=== PATIENT | female | born 1990 | race Caucasian/White ===

== ENCOUNTER 2017-04-12 17:22 | Emergency (ER) | payer OTHER, MEDICAID ==
[~2017-04-12] VITALS: Ht 167.6 cm; Wt 59.1 kg
[~2017-04-12 17:22] MED LIST: ACET325 PO; Breast pump; COMPCHW PO; IBUP600 PO
[2017-04-12] MEDS ORDERED: SODIUM CHLOR 0.9% 1000 ML INJ 1,000 ML IV ONE (17:38)
[2017-04-12] MEDS ORDERED: SODIUM CHLORIDE 0.9% FLUSH 10 ML FLUSH IVF PRN (17:45)
[2017-04-12 18:05] LABS: AUTOMATED NEUTROPHIL # 7.2 TH/MM3 (1.8-7.7); BASOPHIL # 0.1 TH/MM3 (0-0.2); BASOPHIL % 0.9 % (0.0-2.0); EOSINOPHIL # 0.2 TH/MM3 (0-0.4); EOSINOPHIL % 1.4 % (0.0-4.0); HEMATOCRIT 36.8 % (35.0-46.0); HEMO FLAGS DIFF FINAL; LYMPH % 23.4 % (9.0-44.0); LYMPHOCYTE # 2.6 TH/MM3 (1.0-4.8); MEAN CELL VOLUME 85.3 FL (80.0-100.0); MEAN CORPUSCULAR HEMOGLOBIN 30.4 PG (27.0-34.0); MEAN CORPUSCULAR HGB CONC 35.6 % (32.0-36.0); MONO % 8.2 % (0.0-8.0); NEUT % 66.1 % (16.0-70.0); PLATELET COUNT 271 TH/MM3 (150-450); RED BLOOD COUNT 4.31 MIL/MM3 (4.00-5.30); RED CELL DISTRIBUTION WIDTH 12.8 % (11.6-17.2)
--- NOTE | 2017-04-12 18:06 | PD ---
HPI Chief Complaint: overdose Time Seen by Provider: 17:52 Travel History International Travel<30 days: No Contact w/Intl Traveler<30days: No History of Present Illness HPI 27-year-old female presents by Dhara conley after ingesting unknown substance and unknown amount in an attempt to kill herself. Patient is not wanting to talk here and would not talk at all until sternal rub and then she told me to go the Fck away. History is significantly limited. She presents by ambulance. Unknown time of ingestion. Staff states ambulance team could not find signs of ingestion but limited evaluation PFSH Past Medical History Medical History: Unable to Obtain Past Surgical History Surgical History: Unable to Obtain Social History Narrative Social History By records Alcohol Use: No Tobacco Use: No Allergies-Medications (Allergen,Severity, Reaction): Coded Allergies: penicillin G (Unverified Allergy, Severe, Anaphylaxis, 02/02/17) Reported Meds & Prescriptions Reported Meds & Active Scripts Active [Breast pump] Units Motrin 600 Mg Tab (Ibuprofen) 600 Mg Tab 600 Mg PO Q6H PRN Completenate ( Vit W/ Ferrous Fumara) Chw 1 Tab PO DAILY Vitafol Ultra 29-0.6-0.4-200 mg ( Vit W/ Fe Polysacch C) 1 Cap Cap Reported Tylenol (Acetaminophen) 325 Mg Tab 650 Mg PO Q4H Review of Systems ROS Limitations: Poor Historian Physical Exam Exam Limitations: Poor Historian Narrative GENERAL: Well-nourished, well-developed patient. SKIN: Warm and dry. Tract [place] noted HEAD: Normocephalic and atraumatic. EYES: No injection or drainage. Pupils 2 mm bilaterally ENT: No nasal drainage noted. NECK: Supple, trachea midline. CARDIOVASCULAR: Regular rate and rhythm RESPIRATORY: No increased effort. No accessory muscle use. GASTROINTESTINAL: Abdomen soft, nondistended. NEUROLOGICAL: Eyes open, moves all extremities, with sternal rub patient will talk very briefly Data Data Last Documented VS Vital Signs Date Time Temp Pulse Resp B/P (MAP) Pulse Ox O2 Delivery O2 Flow Rate FiO2 04/12/17 18:36 92 100 Room Air 04/12/17 18:36 15 122/88 (99) 04/12/17 18:32 98.4 Orders Orders Electrocardiogram (04/12/17 17:38) Complete Blood Count With Diff (04/12/17 17:38) Comprehensive Metabolic Panel (04/12/17 17:38) Prothrombin Time / Inr (Pt) (04/12/17 17:38) Act Partial Throm Time (Ptt) (04/12/17 17:38) Iv Access Insert/Monitor (04/12/17 17:38) Ecg Monitoring (04/12/17 17:38) Oximetry (04/12/17 17:38) Psych Screen (04/12/17 17:38) Sodium Chloride 0.9% Flush (Ns Flush) (04/12/17 17:45) Sodium Chlor 0.9% 1000 Ml Inj (Ns 1000 M (04/12/17 17:38) Call Poison Control (04/12/17 17:38) Drug Screen, Random Urine (04/12/17 17:38) Alcohol (Ethanol) (04/12/17 17:38) Salicylates (Aspirin) (04/12/17 17:38) Tylenol (Acetaminophen) (04/12/17 17:38) Ed Urine Pregnancytest Poc (04/12/17 17:38) Labs Laboratory Tests Test 04/12/17 17:48 04/12/17 17:52 White Blood Count 11.0 TH/MM3 Red Blood Count 4.31 MIL/MM3 Hemoglobin 13.1 GM/DL Hematocrit 36.8 % Mean Corpuscular Volume 85.3 FL Mean Corpuscular Hemoglobin 30.4 PG Mean Corpuscular Hemoglobin Concent 35.6 % Red Cell Distribution Width 12.8 % Platelet Count 271 TH/MM3 Mean Platelet Volume 7.0 FL Neutrophils (%) (Auto) 66.1 % Lymphocytes (%) (Auto) 23.4 % Monocytes (%) (Auto) 8.2 % Eosinophils (%) (Auto) 1.4 % Basophils (%) (Auto) 0.9 % Neutrophils # (Auto) 7.2 TH/MM3 Lymphocytes # (Auto) 2.6 TH/MM3 Monocytes # (Auto) 0.9 TH/MM3 Eosinophils # (Auto) 0.2 TH/MM3 Basophils # (Auto) 0.1 TH/MM3 CBC Comment DIFF FINAL Differential Comment Prothrombin Time 11.5 SEC Prothromb Time International Ratio 1.0 RATIO Activated Partial Thromboplast Time 28.3 SEC Blood Urea Nitrogen 13 MG/DL Creatinine 0.94 MG/DL Random Glucose 74 MG/DL Total Protein 8.4 GM/DL Albumin 3.7 GM/DL Calcium Level 8.9 MG/DL Alkaline Phosphatase 82 U/L Aspartate Amino Transf (AST/SGOT) 31 U/L Alanine Aminotransferase (ALT/SGPT) 38 U/L Total Bilirubin 0.6 MG/DL Sodium Level 140 MEQ/L Potassium Level 3.9 MEQ/L Chloride Level 108 MEQ/L Carbon Dioxide Level 27.9 MEQ/L Anion Gap 4 MEQ/L Estimat Glomerular Filtration Rate 70 ML/MIN Salicylates Level LESS THAN 1.7 MG/DL Acetaminophen Level LESS THAN 2.0 MCG/ML Ethyl Alcohol Level LESS THAN 3 MG/DL Urine Opiates Screen NEG Urine Barbiturates Screen NEG Urine Amphetamines Screen NEG Urine Benzodiazepines Screen POS Urine Cocaine Screen NEG Urine Cannabinoids Screen POS MDM Medical Decision Making Medical Screen Exam Complete: Yes Emergency Medical Condition: Yes Medical Record Reviewed: Yes (past history confirmed) Interpretation(s) EKG shows NSR, no ST elevation or depression, and no arrhythmias. No significant T-wave inversions. CBC & BMP Diagram 04/12/17 17:48 Total Protein 8.4 H, Albumin 3.7, Calcium Level 8.9, Alkaline Phosphatase 82, Aspartate Amino Transf (AST/SGOT) 31, Alanine Aminotransferase (ALT/SGPT) 38, Total Bilirubin 0.6 Differential Diagnosis Overdose, coingestion, electrolyte abnormality, .... Narrative Course Will check blood work and dose with IV fluids and closely monitor On reassessment patient is still with eyes open but still with altered mental status so we will continue to monitor and if improves can medically clear if does not improve will need to be medically admitted Physician Communication Physician Communication oncoming physician to reassess and determine if can medically clear or need to medically admit Mali Lowe MD Apr 12, 2017 18:06
[2017-04-12 18:21] LABS: APTT (PATIENT) 28.3 SEC (24.3-30.1); PROTHROMBIN TIME - PATIENT 11.5 SEC (9.8-11.6)
[2017-04-12 18:32] VITALS: BP 122/88; PULSE 92; RESP 15; TEMP 98.4; O2SAT 100
[2017-04-12 18:32] LABS: ANION GAP 4 MEQ/L (5-15); AST (GOT) 31 U/L (15-37); BICARBONATE 27.9 MEQ/L (21.0-32.0); BLOOD UREA NITROGEN 13 MG/DL (7-18); CHLORIDE 108 MEQ/L (98-107); GLOMERULAR FILTRATION RATE 70 ML/MIN (>89); POTASSIUM 3.9 MEQ/L (3.5-5.1); SODIUM (NA) 140 MEQ/L (136-145)
[2017-04-12 18:35] LABS: ALKALINE PHOSPHATASE 82 U/L (45-117); ALT (GPT) 38 U/L (10-53); TOTAL BILIRUBIN ADULT 0.6 MG/DL (0.2-1.0)
[2017-04-12 18:36] VITALS: BP 122/88; PULSE 90; PULSE 92; RESP 15; O2SAT 100
[2017-04-12 18:47] LABS: ACETAMINOPHEN LESS THAN 2.0 MCG/ML (10.0-30.0); ALCOHOL LESS THAN 3 MG/DL (0-5)
--- NOTE | 2017-04-12 19:15 | PD ---
Physical Exam Narrative General: The patient is a well-developed well-nourished female, with soft restraints in place. The patient is awake and looking around when I try to the room. Head and Neck exam: Head is normocephalic atraumatic. Eyes: The patient is uncooperative with formal extraocular motion testing. She is looking about the room with a conjugate gaze. Pupils are dilated but reactive to light bilaterally at 6 mm. Nose: Midline septum with pink mucous membranes Mouth: Dentition unremarkable. Moist mucus membranes. Posterior oropharynx is not erythematous. No tonsillar hypertrophy. Uvula midline. Airway patent. Neck: No palpable lymphadenopathy. No nuchal rigidity. No thyromegaly. Cardiovascular: Regular rate and rhythm without murmurs, gallops, or rubs. Lungs: Clear to auscultation bilaterally. No wheezes, rhonchi, or rales. Abdomen: Soft, without tenderness to palpation in all 4 quadrants of the abdomen. No guarding, rebound, or rigidity. Normal bowel sounds are audible. No tenderness on palpation of McBurney's point. Extremities: No clubbing, cyanosis, or edema. 2+ pulses in all 4 extremities. Back: No costovertebral angle tenderness to palpation. Neurologic Exam: The patient is uncooperative with formal neurologic testing. The patient speaks very softly when she is answering questions and then suddenly will start to jerk her arms and legs and yell in complete sentences not to touch her. Skin Exam: No rash noted. Intact skin that is warm and dry. Data Data Last Documented VS Vital Signs Date Time Temp Pulse Resp B/P (MAP) Pulse Ox O2 Delivery O2 Flow Rate FiO2 04/12/17 19:34 90 16 144/81 (102) 100 Room Air 04/12/17 18:32 98.4 Orders Orders Electrocardiogram (04/12/17 17:38) Complete Blood Count With Diff (04/12/17 17:38) Comprehensive Metabolic Panel (04/12/17 17:38) Prothrombin Time / Inr (Pt) (04/12/17 17:38) Act Partial Throm Time (Ptt) (04/12/17 17:38) Iv Access Insert/Monitor (04/12/17 17:38) Ecg Monitoring (04/12/17 17:38) Oximetry (04/12/17 17:38) Psych Screen (04/12/17 17:38) Sodium Chloride 0.9% Flush (Ns Flush) (04/12/17 17:45) Sodium Chlor 0.9% 1000 Ml Inj (Ns 1000 M (04/12/17 17:38) Call Poison Control (04/12/17 17:38) Drug Screen, Random Urine (04/12/17 17:38) Alcohol (Ethanol) (04/12/17 17:38) Salicylates (Aspirin) (04/12/17 17:38) Tylenol (Acetaminophen) (04/12/17 17:38) Ed Urine Pregnancytest Poc (04/12/17 17:38) Comprehensive Metabolic Panel (04/12/17 20:00) Salicylates (Aspirin) (04/12/17 20:00) Tylenol (Acetaminophen) (04/12/17 20:00) Electrocardiogram (04/12/17 20:39) Labs Laboratory Tests Test 04/12/17 17:48 04/12/17 17:52 04/12/17 20:10 White Blood Count 11.0 TH/MM3 Red Blood Count 4.31 MIL/MM3 Hemoglobin 13.1 GM/DL Hematocrit 36.8 % Mean Corpuscular Volume 85.3 FL Mean Corpuscular Hemoglobin 30.4 PG Mean Corpuscular Hemoglobin Concent 35.6 % Red Cell Distribution Width 12.8 % Platelet Count 271 TH/MM3 Mean Platelet Volume 7.0 FL Neutrophils (%) (Auto) 66.1 % Lymphocytes (%) (Auto) 23.4 % Monocytes (%) (Auto) 8.2 % Eosinophils (%) (Auto) 1.4 % Basophils (%) (Auto) 0.9 % Neutrophils # (Auto) 7.2 TH/MM3 Lymphocytes # (Auto) 2.6 TH/MM3 Monocytes # (Auto) 0.9 TH/MM3 Eosinophils # (Auto) 0.2 TH/MM3 Basophils # (Auto) 0.1 TH/MM3 CBC Comment DIFF FINAL Differential Comment Prothrombin Time 11.5 SEC Prothromb Time International Ratio 1.0 RATIO Activated Partial Thromboplast Time 28.3 SEC Blood Urea Nitrogen 13 MG/DL 10 MG/DL Creatinine 0.94 MG/DL 0.79 MG/DL Random Glucose 74 MG/DL 76 MG/DL Total Protein 8.4 GM/DL 7.4 GM/DL Albumin 3.7 GM/DL 3.4 GM/DL Calcium Level 8.9 MG/DL 8.5 MG/DL Alkaline Phosphatase 82 U/L 74 U/L Aspartate Amino Transf (AST/SGOT) 31 U/L 32 U/L Alanine Aminotransferase (ALT/SGPT) 38 U/L 36 U/L Total Bilirubin 0.6 MG/DL 0.5 MG/DL Sodium Level 140 MEQ/L 141 MEQ/L Potassium Level 3.9 MEQ/L 4.4 MEQ/L Chloride Level 108 MEQ/L 110 MEQ/L Carbon Dioxide Level 27.9 MEQ/L 26.7 MEQ/L Anion Gap 4 MEQ/L 4 MEQ/L Estimat Glomerular Filtration Rate 70 ML/MIN 86 ML/MIN Salicylates Level LESS THAN 1.7 MG/DL LESS THAN 1.7 MG/DL Acetaminophen Level LESS THAN 2.0 MCG/ML LESS THAN 2.0 MCG/ML Ethyl Alcohol Level LESS THAN 3 MG/DL Urine Opiates Screen NEG Urine Barbiturates Screen NEG Urine Amphetamines Screen NEG Urine Benzodiazepines Screen POS Urine Cocaine Screen NEG Urine Cannabinoids Screen POS MDM Medical Record Reviewed: Yes Supervised Visit with KATH: No Narrative Course During the course of the patients emergency department visit, the patients history, examination, and differential diagnosis were reviewed with the patient. The patient was placed on a transition program manager with oximetry and frequent blood pressure monitoring. The patient had IV access obtained and blood work sent for analysis. The patient was initially seen by Dr. Lowe. Please see her complete history and physical. The patient's case was checked out to me at the conclusion of her shift. The patient is a 27-year-old female who presents to [facility] emergency Department with a history of altered mentation under a Jules act for suicidal ideations possible ingestion of unknown tablets. The patient was initially provided normal saline 1 L IV fluid bolus. The patients laboratory studies were reviewed and remarkable for a CBC that is unremarkable, CMP is remarkable for chloride of 108, anion gap 4, GFR 70, total protein 8.4, PT PTT within normal limits, urine drug screen is positive for benzodiazepine, cannabinoid, salicylate less than 1.7, acetaminophen less than 2 , alcohol level less than 3. I assumed care of the patient and repeat labs were drawn to assess for any further delayed abnormalities along with a repeat ECG. ECG reveals a sinus rhythm heart rate of 68, no acute ST segment elevation , QRS duration is 86 ms, QTC 439 ms. Repeat salicylate less than 1.7, acetaminophen repeat is less than 2, repeated the patient's chemistries reveals a chloride of 110, anion gap 4, GFR 86. The patient will be given a second liter of normal saline IV fluids. I reviewed the patient's Jules act. According to the Jules act the overdose was related to sleeping pills of unknown type. At this time, the patient is awake, easily arousable, confused with dilated pupils, intermittently agitated. The patient's symptoms are consistent with and I estimate an overdose of an antihistamine. After observation, the patient will be medically cleared for evaluation by the psychiatric screener and psychiatrist under a Jules act. Diagnosis Primary Impression: Suicide attempt Additional Impression: Altered mental status Qualified Codes: R41.0 - Disorientation, unspecified Hoda Arizmendi MD Apr 12, 2017 19:15
[2017-04-12 19:34] VITALS: BP 144/81; PULSE 90; RESP 16; O2SAT 100
[2017-04-12 21:13] LABS: ANION GAP 4 MEQ/L (5-15); AST (GOT) 32 U/L (15-37); BICARBONATE 26.7 MEQ/L (21.0-32.0); BLOOD UREA NITROGEN 10 MG/DL (7-18); CHLORIDE 110 MEQ/L (98-107); GLOMERULAR FILTRATION RATE 86 ML/MIN (>89); POTASSIUM 4.4 MEQ/L (3.5-5.1); SODIUM (NA) 141 MEQ/L (136-145)
[2017-04-12 21:16] LABS: ALKALINE PHOSPHATASE 74 U/L (45-117); ALT (GPT) 36 U/L (10-53); TOTAL BILIRUBIN ADULT 0.5 MG/DL (0.2-1.0)
[2017-04-12 21:23] LABS: ACETAMINOPHEN LESS THAN 2.0 MCG/ML (10.0-30.0)
--- NOTE | 2017-04-12 21:33 | EKG ---
Date Performed: 04/12/2017 Time Performed: 18:18:35 PTAGE: 27 years EKG: Sinus rhythm NORMAL ECG NO PREVIOUS TRACING DOCTOR: Severiano Campbell Interpretating Date/Time 04/12/2017 21:32:05
[2017-04-13 01:36] VITALS: BP 144/96; PULSE 63; RESP 17; O2SAT 100
[2017-04-13 06:27] VITALS: BP 116/69; PULSE 64; RESP 17; O2SAT 100
[2017-04-13 11:35] VITALS: BP 112/63; PULSE 72; RESP 18; O2SAT 99
[2017-04-13 18:47] VITALS: BP 106/61; PULSE 78; RESP 18; O2SAT 97
--- NOTE | 2017-04-13 21:27 | EKG ---
Date Performed: 04/12/2017 Time Performed: 21:44:00 PTAGE: 27 years EKG: Sinus rhythm NORMAL ECG PREVIOUS TRACING : 04/12/2017 18.18 Compared to prior tracing no significant change DOCTOR: Severiano Campbell Interpretating Date/Time 04/13/2017 21:25:56
[2017-04-13 22:00] VITALS: BP 120/79; PULSE 71; RESP 18; O2SAT 99
[2017-04-14 02:13] VITALS: BP 130/77; PULSE 74; RESP 18; O2SAT 100
--- NOTE | 2017-04-14 09:34 | PD ---
History of Present Illness Chief Complaint: OD/ Ingestion Time Seen by Provider: 09:05 Travel History International Travel<30 Days: No Contact w/Intl Traveler<30days: No Known affected area: No Legal Status Legal Status: Jules Act Jules Act Signed By: Millie Hager Jules Act Comment: BA signed by: Millie LAWSON, Alessia Iyer#[id number], Case# [id number] History of Present Illness: History of Present Illness 27-year-old female with unknown psychiatric history that presents to Ed under a Jules act initiated by law enforcement after ingesting unknown substance and unknown amount in an attempt to kill herself. The Jules act alleges that she asked her roommate how many sleeping pills it would take to kill herself and then she took an entire bottle of sleeping pills. ED documentation is reviewed and she was uncooperative. with assessment and told them to" go the Fck away". I attempted to interview patient yesterday Apr 13 at approximately 1300 hours. Patient still remained sleepy and would not engage in interview. Staff report she has remained in her room sleeping. This morning the patient is in her room with eyes closed. She is awake. remains uncooperative. When advised I needed to ask her some questions to complete evaluation she states in a loud voice " What the fuck do you want to know. I just want to go fucking home". I endeavored to complete but she remains resistive and states yelling " I lost my kid". Refuses to answer any other questions. No previous contact with [facility] psychiatry as per records [facility] Past Medical History Medical History: Unable to Obtain Tetanus Vaccination: Unknown ?: Not Past Surgical History Surgical History: Unable to Obtain Psychiatric History Psychiatric History Hx Psychiatric Treatment: Denies History of Inpatient Treatment: No Guns or firearms in home: No (Unknown) Social History Unable to obtain as she is uncooperative Hx Alcohol Use: No Hx Tobacco Use: No Hx Substance Use: No Substance Use Type: Marijuana, Benzos (Valium,Xanax) Other Substances Used: Pt denies any drug use, but is positive for benzos and marijuana Hx of Substance Use Treatment: No Family Psychiatric History Unable to obtain Allergies-Medications (Allergen,Severity, Reaction): Coded Allergies: penicillin G (Unverified Allergy, Severe, Anaphylaxis, 02/02/17) Reported Meds & Prescriptions Reported Meds & Active Scripts Active Active Prescriptions or Reported Medications Unobtainable Review of Systems ROS Limitations: Uncooperative Mental Status Examination Appearance: Appropriate (Dressed in [facility]. ) Orientation: Person Motor Activity: Other (decreased. Has remained in bed. ) Speech: Unremarkable Language: Other (Loud , threatning ) Fund of Knowledge: Adequate (unable to assess) Memory: Unremarkable (unable to assess) Mood: Angry Affect: Appropriate Thought Process & Associations: Other (Appears intact) Thought Content: Other (unable to assess) Hallucination Type: Other (does not appear to be responding to internal stimuli) Delusion Type: Other (unable to determine) Suicidal Ideation: Yes (unable to assess. ) Judgment: Impulsive MDM Medical Decision Making Medical Record Reviewed: Yes Assessment/Plan 27-year-old female with unknown psychiatric history that presents to Ed under a Jules act initiated by law enforcement after ingesting unknown substance and unknown amount in an attempt to kill herself. The Jules act alleges that she asked her roommate how many sleeping pills it would take to kill herself and then she took an entire bottle of sleeping pills. ED documentation is reviewed and she was uncooperative. with assessment and told them to" go the Fck away". Patient has remained uncooperative. Attempts at engaging her have been unsuccessful. She becomes angry very rapidly and begins to curse at staff. Patient is number one on [facility] list. If they have not accepted her by 12 noon we will have to look at other disposition options. Patient remains under Jules act and remains at risk for self harm. Patient was transferred to [facility] for further treatment and evaluation. Orders Orders Diet Regular Basic (04/13/17 Lunch) Diet Regular Basic (04/13/17 Dinner) Diet Regular Basic (04/14/17 Breakfast) Results Vital Signs Date Time Temp Pulse Resp B/P (MAP) Pulse Ox O2 Delivery O2 Flow Rate FiO2 04/14/17 02:13 74 18 130/77 (94) 100 Room Air 04/13/17 22:00 71 18 120/79 (93) 99 Room Air 04/13/17 18:47 78 18 106/61 (76) 97 Room Air 04/13/17 11:35 72 18 112/63 (79) 99 Room Air Diagnosis Primary Impression: Adjustment disorder Additional Impression: Suicide attempt Prescriptions Unable to Obtain Active Prescriptions or Reported Meds Disposition: 65 DISC TO PSYCH CARE FACILITY Condition: Fair Problem Qualifiers Primary Impression: Adjustment disorder Qualified Codes: F43.21 - Adjustment disorder with depressed mood Prudence Clement Apr 14, 2017 09:34
[2017-04-14 09:57] VITALS: BP 114/57; PULSE 87; RESP 18; TEMP 98.9; O2SAT 100
--- NOTE | 2017-04-14 10:42 | PD ---
Physical Exam Date Seen by Provider: Apr 14, 2017 Time Seen by Provider: 10:36 Narrative 27-year-old female previously medically cleared for psychiatric evaluation. Patient was evaluated by the psychiatric staff and is to be sent to the [facility]. Patient is currently medically stable for discharge and transfer to [facility]. Data Data Last Documented VS Vital Signs Date Time Temp Pulse Resp B/P (MAP) Pulse Ox O2 Delivery O2 Flow Rate FiO2 04/14/17 09:57 98.9 87 18 114/57 (76) 100 Room Air Orders Orders Electrocardiogram (04/12/17 17:38) Complete Blood Count With Diff (04/12/17 17:38) Comprehensive Metabolic Panel (04/12/17 17:38) Prothrombin Time / Inr (Pt) (04/12/17 17:38) Act Partial Throm Time (Ptt) (04/12/17 17:38) Iv Access Insert/Monitor (04/12/17 17:38) Ecg Monitoring (04/12/17 17:38) Oximetry (04/12/17 17:38) Psych Screen (04/12/17 17:38) Sodium Chloride 0.9% Flush (Ns Flush) (04/12/17 17:45) Sodium Chlor 0.9% 1000 Ml Inj (Ns 1000 M (04/12/17 17:38) Call Poison Control (04/12/17 17:38) Drug Screen, Random Urine (04/12/17 17:38) Alcohol (Ethanol) (04/12/17 17:38) Salicylates (Aspirin) (04/12/17 17:38) Tylenol (Acetaminophen) (04/12/17 17:38) Ed Urine Pregnancytest Poc (04/12/17 17:38) Comprehensive Metabolic Panel (04/12/17 20:00) Salicylates (Aspirin) (04/12/17 20:00) Tylenol (Acetaminophen) (04/12/17 20:00) Electrocardiogram (04/12/17 20:39) Diet Regular Basic (04/13/17 Breakfast) Diet Regular Basic (04/13/17 Lunch) Diet Regular Basic (04/13/17 Dinner) Diet Regular Basic (04/14/17 Breakfast) Labs Laboratory Tests Test 04/12/17 17:48 04/12/17 17:52 04/12/17 20:10 White Blood Count 11.0 TH/MM3 Red Blood Count 4.31 MIL/MM3 Hemoglobin 13.1 GM/DL Hematocrit 36.8 % Mean Corpuscular Volume 85.3 FL Mean Corpuscular Hemoglobin 30.4 PG Mean Corpuscular Hemoglobin Concent 35.6 % Red Cell Distribution Width 12.8 % Platelet Count 271 TH/MM3 Mean Platelet Volume 7.0 FL Neutrophils (%) (Auto) 66.1 % Lymphocytes (%) (Auto) 23.4 % Monocytes (%) (Auto) 8.2 % Eosinophils (%) (Auto) 1.4 % Basophils (%) (Auto) 0.9 % Neutrophils # (Auto) 7.2 TH/MM3 Lymphocytes # (Auto) 2.6 TH/MM3 Monocytes # (Auto) 0.9 TH/MM3 Eosinophils # (Auto) 0.2 TH/MM3 Basophils # (Auto) 0.1 TH/MM3 CBC Comment DIFF FINAL Differential Comment Prothrombin Time 11.5 SEC Prothromb Time International Ratio 1.0 RATIO Activated Partial Thromboplast Time 28.3 SEC Blood Urea Nitrogen 13 MG/DL 10 MG/DL Creatinine 0.94 MG/DL 0.79 MG/DL Random Glucose 74 MG/DL 76 MG/DL Total Protein 8.4 GM/DL 7.4 GM/DL Albumin 3.7 GM/DL 3.4 GM/DL Calcium Level 8.9 MG/DL 8.5 MG/DL Alkaline Phosphatase 82 U/L 74 U/L Aspartate Amino Transf (AST/SGOT) 31 U/L 32 U/L Alanine Aminotransferase (ALT/SGPT) 38 U/L 36 U/L Total Bilirubin 0.6 MG/DL 0.5 MG/DL Sodium Level 140 MEQ/L 141 MEQ/L Potassium Level 3.9 MEQ/L 4.4 MEQ/L Chloride Level 108 MEQ/L 110 MEQ/L Carbon Dioxide Level 27.9 MEQ/L 26.7 MEQ/L Anion Gap 4 MEQ/L 4 MEQ/L Estimat Glomerular Filtration Rate 70 ML/MIN 86 ML/MIN Salicylates Level LESS THAN 1.7 MG/DL LESS THAN 1.7 MG/DL Acetaminophen Level LESS THAN 2.0 MCG/ML LESS THAN 2.0 MCG/ML Ethyl Alcohol Level LESS THAN 3 MG/DL Urine Opiates Screen NEG Urine Barbiturates Screen NEG Urine Amphetamines Screen NEG Urine Benzodiazepines Screen POS Urine Cocaine Screen NEG Urine Cannabinoids Screen POS [facility] Medical Record Reviewed: Yes Supervised Visit with KATH: Yes Narrative Course 27-year-old female previously medically cleared for psychiatric evaluation. Patient was evaluated by the psychiatric staff and is to be sent to the [facility]. Patient is currently medically stable for discharge and transfer to [facility]. Diagnosis Primary Impression: Adjustment disorder Qualified Codes: F43.21 - Adjustment disorder with depressed mood Additional Impression: Suicide attempt Scripts Unable to Obtain Active Prescriptions or Reported Meds Disposition: 01 DISCHARGE HOME Condition: Stable Rodrigo Ruelas Apr 14, 2017 10:42
== END 2017-04-14 11:19 ==
LOC: NEPC 17:22 → NEPJ 04-14 11:19
DX: F43.20 Adjustment disorder, unspecified (principal); T45.0X2A Poisoning by antiallergic and antiemetic drugs, intentional self-harm, initial encounter; R45.851 Suicidal ideations; R41.82 Altered mental status, unspecified; Z88.0 Allergy status to penicillin; Z78.1 Physical restraint status
CPT/HCPCS: 80053; 80307; 84703; 85025; 85610; 85730; 93005; 96360; 99285; J7030

== ENCOUNTER 2017-06-29 17:16 | Emergency (ER) | payer MEDICAID, OTHER ==
[~2017-06-29] VITALS: Ht 162.6 cm; Wt 59.0 kg
--- NOTE | 2017-06-29 17:56 | PD ---
HPI Chief Complaint viability testing Travel History International Travel<30 Days: No Contact w/Intl Traveler<30Days: No Known Affected Area: No History of Present Illness HPI 27-year-old 002, IUP at 15.4 versus 19.4? care complicated by history of prior delivery 1, 1, no care, IV drug abuse with opioids. The patient presents for viability testing prior to admission to [facility] for detox. She reports that she does not yet feel movements. She denies any leaking of fluid or vaginal bleeding. She denies any painful contractions or uterine cramping. She has no OB or CRAFT ARTIST complaints today. She reports 2 different LMPs which would put her at 15.4 versus 19.4. She reports that she was told her due date by the skilled nursing was 11/20/2017 however she has had no ultrasound testing during this . Para: 2 : 3 History Past Medical History Medical History: Denies Significant Hx Obstetric History Obstetric History 002 1 1 Past Surgical History Narrative Surgical delivery 1 Family History Family History: Negative Social History Alcohol Use: No Tobacco Use: Yes Substance Abuse: Yes Allergies-Medications (Allergen,Severity, Reaction): Coded Allergies: penicillin G (Unverified Allergy, Severe, Anaphylaxis, 02/02/17) Home Meds Unable to Obtain Active Prescriptions or Reported Meds Review of Systems Except as stated in HPI: all other systems reviewed are Neg Physical Exam Narrative GENERAL: Well-nourished, well-developed patient. SKIN: Warm and dry. HEAD: Normocephalic and atraumatic. EYES: No scleral icterus. No injection or drainage. ENT: No nasal drainage noted. Mucous membranes pink. Airway patent. NECK: Supple, trachea midline. No JVD. CARDIOVASCULAR: Regular rate and rhythm without murmurs, gallops, or rubs. RESPIRATORY: Breath sounds equal bilaterally. No accessory muscle use. BREASTS: Deferred ABDOMEN/GI: Abdomen soft, non-tender, bowel sounds present, no rebound, no guarding GENITOURINARY: Deferred FHT's: 150s by Doppler just above the pubic symphysis U/S: Ultrasound was placed which confirmed an intrauterine but it appears to be early gestational age of the fetus was located by ultrasound near the pubic symphysis. No measurements were able to be obtained by transabdominal imaging. EXTREMITIES: No cyanosis or edema. BACK: Nontender without obvious deformity. NEUROLOGICAL: Awake and alert. Motor and sensory grossly within normal limits. Five out of 5 muscle strength in all muscle groups. Normal speech. MDM Plan Assessment/plan: 27-year-old 1. IUP: Limited U/S in DENISA suggests gestational age less than patient's stated gestational age and FHT audible just above pubic symphysis and fetus visible on US just above pubic symphysis. Attempted to have pelvic ultrasound performed in OB ED to to her suspected early gestational age, however this does not seem to be feasible so the patient will be transferred to the ED for a pelvic ultrasound. Routine / precautions. 2. heart tones were confirmed in the 150s by heart tones dopplers just superior to the pubic symphysis confirming a live fetus. 3. Patient may be transferred to [facility], note was given documenting heart tones. 4. Patient needs to establish care as soon as possible. Diagnosis Diagnosis: Primary Impression: IUP (intrauterine ), incidental Additional Impression: IVDA (intravenous drug abuse) complicating Disposition: 70 TRANSFER TO OTHER FACILITY (Transfer to Main ED for pelvic U/S prior to admission to [facility]) Condition: Good Scripts Unable to Obtain Active Prescriptions or Reported MedDea Jansen MD Jun 29, 2017 17:56
[2017-06-29 18:45] VITALS: BP 125/65; PULSE 112; RESP 18; TEMP 98.6; O2SAT 96
--- NOTE | 2017-06-29 20:23 | PD ---
HPI Chief Complaint: Related Problem Time Seen by Provider: 20:19 Travel History International Travel<30 days: No Contact w/Intl Traveler<30days: No Traveled to known affect area: No History of Present Illness HPI 27-year-old white female 3 para 2 with a history of IV drug abuse presents to emergency department for medical clearance to go to [facility] The patient states that she needs documentation that she has an IUP that is viable before she can get into the program. She was seen by the OB hospitalist upstairs and had a bedside ultrasound which showed a viable . She did not do dating. The patient here has no medical complaints. She denies any fever or chills. No chest pain or shortness of breath. No nausea vomiting. No abdominal pain. No leakage of fluid or vaginal bleeding. Patient its to polysubstance abuse. Admits to IV substance abuse. She states that she mostly sorts or drugs. She states that needles are not hurting. Patient denies any suicidal homicidal ideation. She states that she would like in and get clean off drugs. [facility] Past Medical History Narrative Medical Denies diabetes, denies hepatitis Tetanus Vaccination: < 5 Years ?: LMP: February Past Surgical History Narrative Surgical Incision and drainage of abscess, Family History Family History: Negative Social History Alcohol Use: No Tobacco Use: Yes Substance Use: Yes (IV drug abuse) Allergies-Medications (Allergen,Severity, Reaction): Coded Allergies: penicillin G (Unverified Allergy, Severe, Anaphylaxis, 02/02/17) Reported Meds & Prescriptions Reported Meds & Active Scripts Active Active Prescriptions or Reported Medications Unobtainable Review of Systems General / Constitutional: No: Fever Eyes: No: Visual changes HENT: No: Headaches Cardiovascular: No: Chest Pain or Discomfort Respiratory: No: Shortness of Breath Gastrointestinal: No: Abdominal Pain Genitourinary: No: Dysuria Musculoskeletal: No: Pain Skin: No Rash Neurologic: No: Weakness Psychiatric: No: Depression Endocrine: No: Polydipsia Hematologic/Lymphatic: No: Easy Bruising Physical Exam Narrative GENERAL: This is a well-nourished, well-developed patient, in no apparent distress. SKIN: No rashes, ecchymoses or lesions. Warm and dry. HEAD: Atraumatic. Normocephalic. EYES: PERRL, EOMI, no discharge or injection. No scleral icterus. EARS: Clear NOSE: Nasal turbinates appear normal. THROAT: Mucosa pink and moist. Airway patent. NECK: Trachea midline. supple, moves head freely. LUNGS: Clear to auscultation. CV: Regular in rhythm. ABDOMEN: Soft nontender. No guarding or rebound. EXT: No clubbing cyanosis or edema. Patient has old surgical scar in the right antecubital fossa. She has multiple track [place]. No signs of infection. Data Data Last Documented VS Vital Signs Date Time Temp Pulse Resp B/P (MAP) Pulse Ox O2 Delivery O2 Flow Rate FiO2 06/29/17 18:45 98.6 112 18 125/65 (85) 96 Room Air Orders Orders Us Pelvis Preg(/ Gestat) (06/29/17 ) Ed Discharge Order (06/29/17 20:14) MDM Medical Decision Making Medical Screen Exam Complete: Yes Emergency Medical Condition: Yes Medical Record Reviewed: Yes Differential Diagnosis Differential diagnoses: Alcohol intoxication, substance abuse, electrolyte abnormality, malingering Narrative Course Patient has a viable intrauterine . Patient is been medically cleared for detox. Diagnosis Primary Impression: IUP (intrauterine ), incidental Additional Impression: IVDA (intravenous drug abuse) complicating Patient Instructions: General Instructions Departure Forms: Tests/Procedures Additional Instructions: Rest. Go directly over [facility] for detox. Scripts Unable to Obtain Active Prescriptions or Reported Meds Disposition: 70 TRANSFER TO OTHER FACILITY Condition: Sanya Mcdermott Jun 29, 2017 20:23
--- NOTE | 2017-06-29 20:33 | RADRPT ---
EXAM DATE/TIME: 06/29/2017 19:43 [place] COMPARISON: No previous studies available for comparison. INDICATIONS : Substance abuse. LAB(S): Beta-hCG: MEDICAL HISTORY : . Substance abuse. SURGICAL HISTORY : section. Right arm surgery. ENCOUNTER: Initial ACUITY: 1 day PAIN SCORE: 0/10 LOCATION: Bilateral pelvis MEASUREMENTS: UTERUS: 13.2 x 9.8 x 7.5 cm ENDOMETRIAL STRIPE: >20 mm RIGHT OVARY: 3.3 x 2.0 x 1.9 cm LEFT OVARY: 3.3 x 1.9 x 1.8 cm FREE FLUID: No CROWN RUMP LENGTH: 5.7 cm = 12 WKS 2 DAYS FHR: 150 BPM FINDINGS: UTERUS: The uterus is retroflexed. There is a intrauterine gestational sac measuring 6.2 x 6.2 x 4.2 cm. The re is a [place] rump length of 5.7 cm corresponding to 12 week 2 day gestation. heart rate 150 be ats per minute The myometrium has homogeneous echotexture without mass. RIGHT OVARY: Ovary contains no mass or significant cystic lesion. LEFT OVARY: Ovary contains no mass or significant cystic lesion. MISCELLANEOUS: No free fluid. CONCLUSION: Positive intrauterine between 11-12 weeks. Jozef Muñoz MD on June 29, 2017 at 20:28 Board Certified Radiologist. This report was verified electronically.
== END 2017-06-29 20:54 | disposition short-term general hospital (02) ==
LOC: HOBED 17:16 → NED 20:54
DX: O99.321 Drug use complicating pregnancy, first trimester (principal); O34.219 Maternal care for unspecified type scar from previous cesarean delivery
CPT/HCPCS: 76801; 76815

== ENCOUNTER → 2017-09-05 | Outpatient (CLI) | payer MEDICAID, OTHER | LOC: HPND 09:32 | PROVIDERS: ATTEND Family Medicine | DX: Z36.3 Encounter for antenatal screening for malformations (principal); O26.842 Uterine size-date discrepancy, second trimester | CPT/HCPCS: 76805 ==

== ENCOUNTER 2018-01-08 23:22 | Inpatient (IN) ==
[2018-01-09] MEDS ORDERED: Sodium Chlor 0.9% Inj 500 ML IV.SIG PRN (00:03)
[2018-01-09] MEDS ORDERED: Oxytocin 30 Units/500ml Premix 30 UNITS/500 ML BAG IV.SIG ONE (00:03)
[2018-01-09] MEDS ORDERED: Sod Chloride 0.9% Inj 1,000 ML IV.CONT PRN (00:03)
[2018-01-09] MEDS ORDERED: fentaNYL Citrate Inj 100 MCG/2 ML Ampul IV.PUSH PRN ×2 (00:03)
[2018-01-09] MEDS ORDERED: Naloxone Inj 0.4 MG/ML Vial IV.PUSH PRN ×2 (00:03→05:11)
[2018-01-09 00:14] LABS: Baso # (Auto) 0.1 th/mm3 (0.0-0.2); Baso % (Auto) 0.5 % (0.0-2.0); Eos # (Auto) 0.2 th/mm3 (0.0-0.4); Eos % (Auto) 1.2 % (0.0-4.0); Hematocrit 35.9 % (35.0-46.0); Hemoglobin 12.2 gm/dL (11.6-15.3); Lymph # (Auto) 3.2 th/mm3 (1.0-4.8); Mean Corpuscular HGB Conc 34.1 % (32.0-36.0); Mean Platelet Volume 8.8 fL (7.0-11.0); Mono # (Auto) 1.2 th/mm3 (0.0-0.9); Mono % (Auto) 7.6 % (0.0-8.0); Neut # (Auto) 10.8 th/mm3 (1.8-7.7); Neut % (Auto) 69.7 % (16.0-70.0); Platelet Count 261 th/mm3 (150-450); Red Blood Count 4.08 mil/mm3 (4.00-5.30); Red Cell Distribution Width 12.9 % (11.6-17.2); White Blood Count 15.4 th/mm3 (4.0-11.0)
[2018-01-09] MEDS ORDERED: Citric Acid/Sodium Citrate Liq 30 ML UDC PO SCH (00:15)
[2018-01-09] MEDS ORDERED: fentaNYL 2MCG-Bupiv 0.125% Epi 150 ML EPIDURAL ONE (00:20)
[2018-01-09 00:21] LABS: Amphetamine Urine With Conf Neg (Neg); Benzodiazepine Urine With Conf Neg (Neg)
--- NOTE | 2018-01-09 00:23 | P.HPOB ---
History of Present Illness Primary Care Physician: No Primary Care Physician Chief Complaint: contractions History of Present Illness: Pt is a 27 yr old @ 39/5 presenting to L&D for contractions. She states contractions started at 3 am this morning and are now 3-4 minutes apart. She has had a in the past due to "baby being face up", and a vaginal delivery with her second . She denies any LOF, or vaginal bleeding. She can feel baby move ok. She states she had low fluid with this but no complications. She states no PMH. Weeks Gestation:: 39 Para: 3 : 2 Review of Systems Constitutional: Denies chills, Denies fever(s), Denies headache(s) Eyes: Denies blurry vision, Denies change in vision, Denies double vision Cardiovascular: Denies chest pain, Denies lightheadedness, Denies shortness of breath Respiratory: Denies shortness of breath Genitourinary: Reports other (Cristóbal), Denies abnormal vaginal bleeding, Denies vaginal discharge Comments: Denies LOF PMFSH - Medical / Surgical Hx Neg / Unobtainable Medical Problems Denied: Yes - Medical History Medical History: Medical History (Last Updated 01/09/18 @ 00:10 by Ananya Roach MD, R1) delivery delivered (Acute) - Tobacco History Second Hand Smoke Exposure: No Smoking Status: Former smoker (quit when she became ) Tobacco Type: Cigarettes - Alcohol History How Often Do You Have a Drink Containing Alcohol: Never - Substance Use History Substance History: Past History (pt denies current use) Medications and Allergies Allergies Allergy/AdvReac Type Severity Reaction Status Date / Time penicillin G Allergy Severe Anaphylaxis Unverified 02/02/17 02:20 Home Medications Medication Instructions Recorded Confirmed Type prenat.vits,radha,[id number] 1 tab PO DAILY 12/27/17 12/27/17 History [ Vitamin] Exam Vital signs: Vital Signs 01/08/18 23:43 Temperature 97.6 F Pulse Rate 89 Respiratory Rate 18 Blood Pressure 132/71 Narrative: Pelvic Exam: Per nurse assessment Cervix: Dilatation: 6 Effacement: 90% Station: -2 Presentation: Cephalic Membranes: bulging Uterine Contractions: present FHT's: Category: 1 Baseline: 130 Reactive: yes Variability: present Decels: absent Caprini VTE Risk Assessment Caprini VTE Risk Assessment: No/Low Risk (score <= 1) Caprini Risk Assessment Model: Point Value = 1 Point Value = 2 Point Value = 3 Point Value = 5 Age 41-60 Minor surgery BMI > 25 kg/m2 Swollen legs Varicose veins or History of unexplained or recurrent spontaneous Oral contraceptives or hormone replacement Sepsis (< 1 month) Serious lung disease, including pneumonia (< 1 month) Abnormal pulmonary function Acute myocardial infarction Congestive heart failure (< 1 month) History of inflammatory bowel disease Medical patient at bed rest Age 61-74 Arthroscopic surgery Major open surgery (> 45 min) Laparoscopic surgery (> 45 min) Malignancy Confined to bed (> 72 hours) Immobilizing plaster cast Central venous access Age >= 75 History of VTE Family history of VTE Factor V Leiden Prothrombin 35020A Lupus anticoagulant Anticardiolipin antibodies Elevated serum homocysteine Heparin-induced thrombocytopenia Other congenital or acquired thrombophilia Stroke (< 1 month) Elective arthroplasty Hip, pelvis, or leg fracture Acute spinal cord injury (< 1 month) Prophylaxis Regimen: Total Risk Factor Score Risk Level Prophylaxis Regimen 0-1 Low Early ambulation 2 Moderate Order ONE of the following: *Sequential Compression Device (SCD) *Heparin 5000 units SQ BID 3-4 Higher Order ONE of the following medications: *Heparin 5000 units SQ TID *Enoxaparin/Lovenox 40 mg SQ daily (WT < 150 kg, CrCl > 30 mL/min) *Enoxaparin/Lovenox 30 mg SQ daily (WT < 150 kg, CrCl > 10-29 mL/min) *Enoxaparin/Lovenox 30 mg SQ BID (WT < 150 kg, CrCl > 30 mL/min) AND/OR *Sequential Compression Device (SCD) 5 or more Highest Order ONE of the following medications: *Heparin 5000 units SQ TID (Preferred with Epidurals) *Enoxaparin/Lovenox 40 mg SQ daily (WT < 150 kg, CrCl > 30 mL/min) *Enoxaparin/Lovenox 30 mg SQ daily (WT < 150 kg, CrCl > 10-29 mL/min) *Enoxaparin/Lovenox 30 mg SQ BID (WT < 150 kg, CrCl > 30 mL/min) AND *Sequential Compression Device (SCD) Assessment and Plan - Diagnosis (1) Code(s): Z34.90 - Encounter for supervision of normal , unspecified, unspecified trimester Status: Acute Plan: 27 yr old female @39/5 in labor: - Admit to L&D - GBS (-) - Consult Anesthesia for epidural - Continue to monitor contractions - Will consider augmentation of contractions if insufficient for successful labor Pt D/W Dr. Sales and Dr. Sharp (1) Qualifiers: Weeks of gestation: 39 weeks Qualified Code(s): Z3A.39 - 39 weeks gestation of
[2018-01-09] MEDS ORDERED: Bupivacaine PF 0.25% Inj 10 ML Vial ONE (00:29)
[2018-01-09 04:57] LABS: Bacteria,Urine Rare /hpf; Bilirubin,Urine Negative (Negative); Clarity,Urine Hazy (Clear); Color,Urine Yellow (Yellw/Straw); Glucose,Urine (UA) Negative (Negative); Leukocyte Esterase,Urine Negative (Negative); Mucus,Urine Few /lpf (Occasional); Nitrite,Urine Negative (Negative); Specific Gravity,Urine 1.014 (1.002-1.035); Squamous Epithelial Cell,Urine 9 /hpf (0-5)
[2018-01-09] MEDS ORDERED: Zolpidem Tartrate 5 MG Tablet PO PRN (05:11)
[2018-01-09] MEDS ORDERED: Benzocaine 20% Top Spray 60 ML Can TOPICAL PRN (05:11)
[2018-01-09] MEDS ORDERED: Witch Hazel 50%/Glyderin 12.5% 40 Pad Jar RECTAL PRN (05:11)
[2018-01-09] MEDS ORDERED: Bisacodyl 10 MG Supp RECTAL PRN (05:11)
--- NOTE | 2018-01-09 05:11 | P.OBDELI ---
Weeks Gestation: 39 Anesthesia: Epidural Episiotomy: none Vaginal Delivery: Normal Presentation: Occiput anterior Nuchal Cord: None Delayed Cord Clamping (45 sec): Yes Placenta: Spontaneous delivery Laceration: None Estimated blood loss (mL): 300 : Female
[2018-01-09] MEDS ORDERED: Oxytocin 30 Units/500ml Premix 30 UNITS/500 ML BAG IV.CONT SCH (05:15)
[2018-01-09] MEDS ORDERED: fentaNYL 2MCG-Bupiv 0.125% Epi 150 ML EPIDURAL PRN (05:25)
[2018-01-09] MEDS ORDERED: fentaNYL Citrate Inj 100 MCG/2 ML Ampul EPIDURAL ONE (05:25)
[2018-01-09] MEDS: Acetaminophen 325 MG Tablet PO PRN ×2 (07:15→20:22)
[2018-01-09] MEDS: Senna/Docusate Sodium 8.6/50 MG Tablet PO SCH ×2 (08:49→20:22)
[2018-01-09] MEDS ORDERED: Diphtheria/Tetanus/Pertussis Vaccine Inj 0.5 ML Syringe IM ONE (16:00)
[2018-01-09] MEDS ORDERED: Measles/Mumps/Rubella Vaccine Inj 0.5 ML Vial SQ ONE (16:00)
[2018-01-10] MEDS: Acetaminophen 325 MG Tablet PO PRN ×3 (08:41→22:15)
[2018-01-10] MEDS: Senna/Docusate Sodium 8.6/50 MG Tablet PO SCH ×2 (08:42→22:15)
--- NOTE | 2018-01-10 08:50 | P.PNOB ---
Subjective Post day: 1 Interval history: Patient is a 27-year-old delivered at 39 weeks and 5 days. Patient is day 1 after . Patient's pain is well-controlled. Patient reports eating and drinking without any nausea or vomiting. Patient reports minimal bleeding. Patient has passed gas and had bowel movement. Patient is walking without lower extremity pain or shortness of breath. Patient reports desire for contraception and breast-feeding. Objective Vital Signs/I&O: Vital Signs 01/09/18 09:10 01/09/18 17:43 01/09/18 17:49 Temperature 97.7 F 98.5 F Pulse Rate 78 90 Respiratory Rate 16 18 Blood Pressure 111/65 108/72 01/09/18 20:00 01/10/18 08:00 01/10/18 08:29 Temperature 97.6 F 98.0 F 98.0 F Pulse Rate 80 78 78 Respiratory Rate 18 Blood Pressure 122/73 118/77 118/77 Intake & Output 01/09/18 01/10/18 01/10/18 18:59 06:59 18:59 Weight 78.106 kg Other: Weight On Admission 78.106 kg Result Diagrams: 01/08/18 23:55 Objective Remarks: GENERAL: Well-nourished, well-developed patient. CARDIOVASCULAR: Regular rate and rhythm without murmurs, gallops, or rubs. RESPIRATORY: Breath sounds equal bilaterally. No accessory muscle use. ABDOMEN/GI: Abdomen soft, non-tender. Fundus: Firm, non-tender at umbilicus. GENITOURINARY: Light to moderate bleeding. EXTREMITIES: No cyanosis or edema, non-tender, without signs of DVT. Medications and IVs: Active Medications Acetaminophen (Tylenol) 650 mg PO Q4H PRN PRN Reason: PAIN SCALE 1 TO 2 Last Admin: 01/10/18 08:41 Dose: 650 mg Al Hydroxide/Mg Hydroxide (Milk Of Magnesia Liq) 30 ml PO Q12H PRN PRN Reason: Mild Constipation Benzocaine (Americaine 20% [place]) 1 spray TOPICAL Q4H PRN PRN Reason: For Perineum Discomfort Bisacodyl (Dulcolax Supp) 10 mg RECTAL DAILY PRN PRN Reason: SEVERE CONSITIPATION Citric Acid/Sodium Citrate (Sodium Citrate/Citric Acid Liq) 30 ml PO [employer] Stop: 01/13/18 00:14 Fentanyl Citrate (Fentanyl Inj) 50 mcg IV.PUSH Q1H PRN PRN Reason: Pain Scale 3 - 5 Fentanyl Citrate (Fentanyl Inj) 100 mcg IV.PUSH Q1H PRN PRN Reason: PAIN SCALE 6 TO 10 Lactated Ringer's (Lr 1000 Ml Inj) 1,000 mls @ 125 mls/hr IV.CONT .Q8H [facility] Lactated Ringer's (Lr 1000 Ml Inj) 1,000 mls @ 3,000 mls/hr IV.SIG UNSCH PRN PRN Reason: compromise or epidural Sodium Chloride (Ns Inj) 500 mls @ 1,000 mls/hr IV.SIG UNSCH PRN PRN Reason: SEE LABEL COMMENTS Sodium Chloride (Ns Inj) 1,000 mls @ 100 mls/hr IV.CONT .Q10H PRN PRN Reason: SEE LABEL COMMENTS Fentanyl/Bupivacaine/Sodium Chlor (Fentanyl 2 Mcg-Bupiv 0.125% Epi) 150 mls @ 14 mls/hr EPIDURAL PRN PRN PRN Reason: for Labor Pain Lactulose (Lactulose Liq) 30 ml PO DAILY PRN PRN Reason: SEVERE CONSITIPATION Lidocaine HCl (Xylocaine 1% Inj) 0.1 ml I-DERMAL PRN PRN PRN Reason: For IV start Stop: 01/12/18 00:02 Lidocaine HCl (Xylocaine 1% Inj) 10 ml INFILTRATN PRN PRN PRN Reason: For episiotomy repair Stop: 01/11/18 00:02 Mineral Oil (Muri-Lube Oil) 10 ml TOPICAL PRN PRN PRN Reason: PRN perineal massage Naloxone HCl (Narcan Inj) 0.1 mg IV.PUSH Q2M PRN PRN Reason: for opiate reversal Naloxone HCl (Narcan Inj) 0.1 mg IV.PUSH Q2M PRN PRN Reason: for opiate reversal Ondansetron HCl (Zofran Odt) 4 mg PO Q6H PRN PRN Reason: NAUSEA Ondansetron HCl (Zofran Odt) 4 mg PO Q6H PRN PRN Reason: NAUSEA OR VOMITING Oxycodone/Acetaminophen (Percocet 5/325 Mg) 1 tab PO Q4H PRN PRN Reason: PAIN SCALE 3 TO 5 Senna/Docusate Sodium (Jeri-Colace) 1 tab PO BID [facility] Last Admin: 01/10/18 08:42 Dose: 1 tab Sennosides (Senokot) 17.2 mg PO Q12H PRN PRN Reason: Moderate Constipation Sodium Chloride (Ns Flush) 2 ml IV.FLUSH BID [facility] Last Admin: 01/09/18 08:49 Dose: 2 ml Sodium Chloride (Ns Flush) 2 ml IV.FLUSH PRN PRN PRN Reason: FLUSH AFTER USING IV ACCESS Witch Roberta/Glycerin (Tucks Pads) 1 applicatio RECTAL QID PRN PRN Reason: HEMORRHOIDS Zolpidem Tartrate (Ambien) 5 mg PO HS PRN PRN Reason: SLEEP Assessment and Plan - Diagnosis (1) Vaginal delivery Code(s): O80 - Encounter for full-term uncomplicated delivery Status: Acute Plan: Patient is a 27-year-old delivered at 39 weeks and 5 days. Patient is day 1 after . Patient was counseled to do 6 weeks of pelvic rest. Patient was counseled to follow up in 6 weeks. Patient requested follow-up and contraception. --AF VSS --Continue routine care --Motrin and Tylenol when necessary for pain --Encourage OOB --Pelvic rest for 6 weeks will need follow-up appointment at that time. --Contraception: Micronor --discharge possibly today; if not then tomorrow
[2018-01-11] MEDS: Acetaminophen 325 MG Tablet PO PRN ×2 (02:54→08:42)
--- NOTE | 2018-01-11 07:10 | P.PNOB ---
Subjective Post day: 2 Interval history: Patient is a 27-year-old delivered at 39 weeks and 5 days. Patient is day 2 after . Patient's pain is well-controlled. Patient reports eating and drinking without any nausea or vomiting. Patient reports minimal bleeding. Patient has passed gas and had bowel movement. Patient is walking without lower extremity pain or shortness of breath. Patient reports desire for oral contraception and is putting the baby up for adoption.. Objective Vital Signs/I&O: Vital Signs 01/10/18 08:00 01/10/18 08:29 01/10/18 20:00 Temperature 98.0 F 98.0 F 97.2 F L Pulse Rate 78 78 79 Respiratory Rate 19 Blood Pressure 118/77 118/77 120/72 Result Diagrams: 01/08/18 23:55 Objective Remarks: GENERAL: Well-nourished, well-developed patient. CARDIOVASCULAR: Regular rate and rhythm without murmurs, gallops, or rubs. RESPIRATORY: Breath sounds equal bilaterally. No accessory muscle use. ABDOMEN/GI: Abdomen soft, non-tender. Fundus: Firm, non-tender at umbilicus. GENITOURINARY: Light to moderate bleeding. EXTREMITIES: No cyanosis or edema, non-tender, without signs of DVT. Medications and IVs: Active Medications Acetaminophen (Tylenol) 650 mg PO Q4H PRN PRN Reason: PAIN SCALE 1 TO 2 Last Admin: 01/11/18 02:54 Dose: 650 mg Al Hydroxide/Mg Hydroxide (Milk Of Magnesia Liq) 30 ml PO Q12H PRN PRN Reason: Mild Constipation Benzocaine (Americaine 20% Top [place]) 1 spray TOPICAL Q4H PRN PRN Reason: For Perineum Discomfort Bisacodyl (Dulcolax Supp) 10 mg RECTAL DAILY PRN PRN Reason: SEVERE CONSITIPATION Citric Acid/Sodium Citrate (Sodium Citrate/Citric Acid Liq) 30 ml PO ORDER CALLER [facility] Stop: 01/13/18 00:14 Fentanyl Citrate (Fentanyl Inj) 50 mcg IV.PUSH Q1H PRN PRN Reason: Pain Scale 3 - 5 Fentanyl Citrate (Fentanyl Inj) 100 mcg IV.PUSH Q1H PRN PRN Reason: PAIN SCALE 6 TO 10 Lactated Ringer's (Lr 1000 Ml Inj) 1,000 mls @ 125 mls/hr IV.CONT .Q8H [facility] Lactated Ringer's (Lr 1000 Ml Inj) 1,000 mls @ 3,000 mls/hr IV.SIG UNSCH PRN PRN Reason: compromise or epidural Sodium Chloride (Ns Inj) 500 mls @ 1,000 mls/hr IV.SIG UNSCH PRN PRN Reason: SEE LABEL COMMENTS Sodium Chloride (Ns Inj) 1,000 mls @ 100 mls/hr IV.CONT .Q10H PRN PRN Reason: SEE LABEL COMMENTS Fentanyl/Bupivacaine/Sodium Chlor (Fentanyl 2 Mcg-Bupiv 0.125% Epi) 150 mls @ 14 mls/hr EPIDURAL PRN PRN PRN Reason: for Labor Pain Lactulose (Lactulose Liq) 30 ml PO DAILY PRN PRN Reason: SEVERE CONSITIPATION Lidocaine HCl (Xylocaine 1% Inj) 0.1 ml I-DERMAL PRN PRN PRN Reason: For IV start Stop: 01/12/18 00:02 Mineral Oil (Muri-Lube Oil) 10 ml TOPICAL PRN PRN PRN Reason: PRN perineal massage Naloxone HCl (Narcan Inj) 0.1 mg IV.PUSH Q2M PRN PRN Reason: for opiate reversal Naloxone HCl (Narcan Inj) 0.1 mg IV.PUSH Q2M PRN PRN Reason: for opiate reversal Ondansetron HCl (Zofran Odt) 4 mg PO Q6H PRN PRN Reason: NAUSEA Ondansetron HCl (Zofran Odt) 4 mg PO Q6H PRN PRN Reason: NAUSEA OR VOMITING Oxycodone/Acetaminophen (Percocet 5/325 Mg) 1 tab PO Q4H PRN PRN Reason: PAIN SCALE 3 TO 5 Senna/Docusate Sodium (Jeri-Colace) 1 tab PO BID [facility] Last Admin: 01/10/18 22:15 Dose: 1 tab Sennosides (Senokot) 17.2 mg PO Q12H PRN PRN Reason: Moderate Constipation Sodium Chloride (Ns Flush) 2 ml IV.FLUSH BID [facility] Last Admin: 01/10/18 10:44 Dose: Not Given Sodium Chloride (Ns Flush) 2 ml IV.FLUSH PRN PRN PRN Reason: FLUSH AFTER USING IV ACCESS Witch Roberta/Glycerin (Tucks Pads) 1 applicatio RECTAL QID PRN PRN Reason: HEMORRHOIDS Zolpidem Tartrate (Ambien) 5 mg PO HS PRN PRN Reason: SLEEP Assessment and Plan - Diagnosis (1) Vaginal delivery Code(s): O80 - Encounter for full-term uncomplicated delivery Status: Acute Plan: Patient is a 27-year-old delivered at 39 weeks and 5 days. Patient is day 1 after . Patient was counseled to do 6 weeks of pelvic rest. Patient was counseled to follow up in 6 weeks. Patient requested follow-up and contraception. --Continue routine care --Motrin and Tylenol when necessary for pain --Encourage OOB --Pelvic rest for 6 weeks will need follow-up appointment at that time. --Contraception: Micronor --discharge today
[2018-01-11] MEDS: Senna/Docusate Sodium 8.6/50 MG Tablet PO SCH (08:42)
[2018-01-11] MEDS ORDERED: Measles/Mumps/Rubella Vaccine Inj 0.5 ML Vial SQ ONE (12:30)
== END 2018-01-11 13:37 | disposition home or self-care (01) ==
LOC: HOBED 23:22 → H2E 01-09 00:03 → H1EA 01-09 07:46
PROVIDERS: ADMIT Obstetrics & Gynecology Maternal & Fetal Medicine; ATTEND Obstetrics & Gynecology Maternal & Fetal Medicine